=== PATIENT | male | born 1940 | race Caucasian/White ===

== ENCOUNTER 2020-12-19 15:54 | Emergency (ER) | payer OTHER ==
[~2020-12-19] VITALS: Ht 175.2 cm; Wt 79.4 kg
[2020-12-19 16:00] VITALS: BP 164/78
[2020-12-19 18:12] LABS: ACT PARTIAL THROMBO TIME 26.4 SECONDS (20.0-32.1)
== END 2020-12-19 18:04 | disposition home or self-care (01) ==
LOC: ED 15:54
PROVIDERS: Nurse Practitioner
DX: L76.21 Postprocedural hemorrhage of skin and subcutaneous tissue following a dermatologic procedure (principal); I10 Essential (primary) hypertension; E78.00 Pure hypercholesterolemia, unspecified; Z98.61 Coronary angioplasty status; Y83.8 Other surgical procedures as the cause of abnormal reaction of the patient, or of later complication, without mention of misadventure at the time of the procedure

== ENCOUNTER 2021-07-09 21:11 | Emergency (ER) | payer OTHER ==
[~2021-07-09] VITALS: Ht 175.2 cm; Wt 77.1 kg
[2021-07-09 21:20] VITALS: BP 152/78
[2021-07-10] MEDS ORDERED: CEPHALEXIN500 M1 PO (01:44)
== END 2021-07-10 02:22 | disposition home or self-care (01) ==
LOC: ED 21:11
DX: S00.03XA Contusion of scalp, initial encounter (principal); E11.9 Type 2 diabetes mellitus without complications; I10 Essential (primary) hypertension; Z91.040 Latex allergy status; W18.39XA Other fall on same level, initial encounter; Y93.89 Activity, other specified; Y92.89 Other specified places as the place of occurrence of the external cause; Y99.8 Other external cause status

== ENCOUNTER → 2021-07-17 | Outpatient (CLI) | payer OTHER ==
[~2021-07-17] MED LIST: CEPHALEXIN500 M1 PO
== END ==
LOC: WOUNDCARE 01:01
PROVIDERS: ATTEND Nurse Practitioner Family
DX: S00.03XD Contusion of scalp, subsequent encounter (principal); E11.9 Type 2 diabetes mellitus without complications; I10 Essential (primary) hypertension; Z91.040 Latex allergy status; Z79.84 Long term (current) use of oral hypoglycemic drugs; Z79.899 Other long term (current) drug therapy; W18.39XD Other fall on same level, subsequent encounter

== ENCOUNTER → 2021-07-21 | Outpatient (CLI) | payer OTHER | LOC: WOUNDCARE 00:34 | PROVIDERS: ATTEND Nurse Practitioner Family | DX: S00.03XD Contusion of scalp, subsequent encounter (principal); E11.9 Type 2 diabetes mellitus without complications; I10 Essential (primary) hypertension; Z91.040 Latex allergy status; Z79.84 Long term (current) use of oral hypoglycemic drugs; Z79.899 Other long term (current) drug therapy; W18.39XD Other fall on same level, subsequent encounter ==

== ENCOUNTER → 2021-07-27 | Outpatient (CLI) | payer OTHER | LOC: WOUNDCARE 04:57 | PROVIDERS: ATTEND Nurse Practitioner Family | DX: S00.03XD Contusion of scalp, subsequent encounter (principal); E11.9 Type 2 diabetes mellitus without complications; I10 Essential (primary) hypertension; Z91.040 Latex allergy status; Z79.84 Long term (current) use of oral hypoglycemic drugs; Z79.899 Other long term (current) drug therapy; W18.39XD Other fall on same level, subsequent encounter ==